=== PATIENT | female | born 1975 | race Hispanic/Latino ===

== ENCOUNTER 2020-06-28 14:45 | Emergency (ER) | payer SELFPAY ==
[2020-06-28 15:30] LABS: Absolute Lymphocytes (CBC) 2.4 K/uL (0.7-4.9); Basophils % 0.6 % (0-1.3); Hematocrit 38.7 % (36.0-45.0); Lymphocytes % 24.9 % (15.3-44.8); MPV 7.9 fL (7.6-11.3); RBC Red Blood Cell Count 4.68 M/uL (3.86-4.86)
[2020-06-28 15:47] LABS: ALT/SGPT 23 U/L (12-78); AST/SGOT 13 U/L (15-37); Albumin 3.4 g/dL (3.4-5.0); Alkaline Phosphatase 100 U/L (45-117); BUN Blood Urea Nitrogen 11 mg/dL (7-18); Bicarbonate 26 mmol/L (21-32); Bilirubin Direct < 0.1 mg/dL (0-0.2); Bilirubin Total 0.3 mg/dL (0.2-1.0); Glucose Level 97 mg/dL (74-106); Lipase 228 U/L (73-393); Potassium 3.8 mmol/L (3.5-5.1); Protein, Total 8.6 g/dL (6.4-8.2); Sodium Level 141 mmol/L (136-145)
--- NOTE | 2020-06-28 16:25 | EDPHYS ---
Physician Documentation [facility] Name: Ashley Castillo Age: 44 yrs Sex: Female : 1975 Arrival Date: 06/28/2020 Time: 14:47 Bed 20 Private MD: ED Physician Amador Tilley HPI: 06/28 15:28 This 44 yrs old Female presents to ER via Ambulatory with complaints of kdr Abdominal Pain. 15:28 The patient presents with abdominal pain in the epigastric area, in the upper abdomen. kdr Onset: The symptoms/episode began/occurred gradually, 2.5 week(s) ago. The symptoms radiate to back. Associated signs and symptoms: Pertinent positives: nausea. The symptoms are described as achy, crampy, intermittent, vague. Modifying factors: The symptoms are alleviated by nothing, the symptoms are aggravated by movement. Severity of pain: At its worst the pain was mild moderate in the emergency department the pain has resolved. The patient has not experienced similar symptoms in the past. The patient has not recently seen a physician. Historical: - Allergies: 14:53 No Known Allergies; ll1 - PSHx: 14:53 ; ll1 - Immunization history:: Flu vaccine is not up to date. - Social history:: Smoking status: Patient denies any tobacco usage or history of. ROS: 15:28 Constitutional: Negative for fever, chills, and weight loss, Eyes: Negative for injury, kdr pain, redness, and discharge, ENT: Negative for injury, pain, and discharge, Neck: Negative for injury, pain, and swelling, Cardiovascular: Negative for chest pain, palpitations, and edema, Respiratory: Negative for shortness of breath, cough, wheezing, and pleuritic chest pain, Back: Negative for injury and pain, : Negative for injury, bleeding, discharge, and swelling, MS/Extremity: Negative for injury and deformity, Skin: Negative for injury, rash, and discoloration, Neuro: Negative for headache, weakness, numbness, tingling, and seizure activity. Psych: Negative for depression, anxiety, suicide ideation, homicidal ideation, and hallucinations, Allergy/Immunology: Negative for hives, rash, and allergies, Endocrine: Negative for neck swelling, polydipsia, polyuria, polyphagia, and marked weight changes, Hematologic/Lymphatic: Negative for swollen nodes, abnormal bleeding, and unusual bruising. 15:28 Abdomen/GI: Positive for abdominal pain, nausea, Negative for constipation, abdominal cramps, abdominal distension, black/tarry stool, rectal pain, rectal bleeding, bowel incontinence. Exam: 15:28 Constitutional: This is a well developed, well nourished patient who is awake, alert, kdr and in no acute distress. Head/Face: Normocephalic, atraumatic. Eyes: Pupils equal round and reactive to light, extra-ocular motions intact. Lids and lashes normal. Conjunctiva and sclera are non-icteric and not injected. Cornea within normal limits. Periorbital areas with no swelling, redness, or edema. Neck: Trachea midline, no thyromegaly or masses palpated, and no cervical lymphadenopathy. Supple, full range of motion without nuchal rigidity, or vertebral point tenderness. No Meningismus. Chest/axilla: Normal chest wall appearance and motion. Nontender with no deformity. No lesions are appreciated. Cardiovascular: Regular rate and rhythm with a normal S1 and S2. No gallops, murmurs, or rubs. Normal PMI, no JVD. No pulse deficits. Respiratory: Lungs have equal breath sounds bilaterally, clear to auscultation and percussion. No rales, rhonchi or wheezes noted. No increased work of breathing, no retractions or nasal flaring. Back: No spinal tenderness. No costovertebral tenderness. Full range of motion. Skin: Warm, dry with normal turgor. Normal color with no rashes, no lesions, and no evidence of cellulitis. MS/ Extremity: Pulses equal, no cyanosis. Neurovascular intact. Full, normal range of motion. Neuro: Awake and alert, GCS 15, oriented to person, place, time, and situation. Cranial nerves II-XII grossly intact. Motor strength 5/5 in all extremities. Sensory grossly intact. Cerebellar exam normal. Normal gait. Psych: Awake, alert, with orientation to person, place and time. Behavior, mood, and affect are within normal limits. 15:28 Abdomen/GI: Inspection: obese Bowel sounds: active, all quadrants, Palpation: soft, Hernia: not appreciated, Difficult to assess due to body habitus. Vital Signs: 14:53 BP 137 / 86; Pulse 86; Resp 18; Temp 98.3; Pulse Ox 99% ; Weight 113.4 kg; Pain 10/10; ll1 16:59 BP 128 / 78; Pulse 82; Resp 18; Temp 97.9; Pulse Ox 100% on R/A; ph MDM: 15:28 Data reviewed: vital signs, nurses notes, lab test result(s), radiologic studies. kdr Counseling: I had a detailed discussion with the patient and/or guardian regarding: the historical points, exam findings, and any diagnostic results supporting the discharge/admit diagnosis, lab results, radiology results. 16:24 Patient medically screened. kdr 06/28 14:56 Order name: Basic Metabolic Panel; Complete Time: 16:00 kdr 06/28 14:56 Order name: CBC with Diff; Complete Time: 16:00 kdr 06/28 14:56 Order name: Hepatic Function; Complete Time: 16:00 kdr 06/28 14:56 Order name: Lipase; Complete Time: 16:00 kdr 06/28 15:25 Order name: CT Abd/Pelvis - IV Contrast Only kdr 06/28 14:56 Order name: IV Saline Lock; Complete Time: 15:19 kdr 06/28 14:56 Order name: Labs collected and sent; Complete Time: 15:19 kdr Administered Medications: 16:55 Drug: traMADol 50 mg Route: PO; ph 16:59 Follow up: Response: No adverse reaction; Medication administered at discharge. ph 16:55 Drug: Bentyl 20 mg Route: PO; ph 16:59 Follow up: Response: No adverse reaction; Medication administered at discharge. ph Disposition: 06/28/20 16:24 Discharged to Home. Impression: Abdominal and pelvic pain. - Condition is Stable. - Discharge Instructions: Abdominal Pain, Adult, [id number]. - Prescriptions for Bentyl 20 mg Oral Tablet - take 1 tablet by ORAL route every 6 hours As needed; 20 tablet. - Medication Reconciliation Form, Thank You Letter form. - Follow up: Private Physician; When: 48 Hours; Reason: If symptoms return, Further diagnostic work-up, Recheck today's complaints, Continuance of care, Re-evaluation by your physician. - Problem is an ongoing problem. - Symptoms have improved. Signatures: Dispatcher [employer] EDMS Amador Tilley MD MD kdr Keyla Ochoa RN RN ph Audie, Lynsay, RN RN ll1 Corrections: (The following items were deleted from the chart) 17:00 16:24 06/28/2020 16:24 Discharged to Home. Impression: Abdominal and pelvic pain. ph Condition is Stable. Forms are Medication Reconciliation Form, Thank You Letter, Antibiotic Education, Prescription Opioid Use. Follow up: Private Physician; When: 48 Hours; Reason: If symptoms return, Further diagnostic work-up, Recheck today's complaints, Continuance of care, Re-evaluation by your physician. Problem is an ongoing problem. Symptoms have improved. kdr
--- NOTE | 2020-06-28 16:25 | ER ---
Nurse's Notes [facility] Name: Ashley Castillo Age: 44 yrs Sex: Female : 1975 Arrival Date: 06/28/2020 Time: 14:47 Bed 20 Private MD: Diagnosis: Abdominal and pelvic pain Presentation: 06/28 14:53 Chief complaint: Patient states: Upper abdominal pain that radiates straight through to ll1 the back for 2.5 weeks. No fever. + nausea. Coronavirus screen: Client denies travel out of the [place] in the last 14 days. At this time, the client does not indicate any symptoms associated with coronavirus-19. Ebola Screen: Patient denies travel to an Ebola-affected area in the 21 days before illness onset. Initial Sepsis Screen: Does the patient meet any 2 criteria? No. Patient's initial sepsis screen is negative. Risk Assessment: Do you want to hurt yourself or someone else? Patient reports no desire to harm self or others. Onset of symptoms was June 11, 2020. 14:53 [facility] 14:53 Acuity: JAN 3 ll1 15:29 Initial Sepsis Screen: Does the patient have a suspected source of infection? No. ph Patient's initial sepsis screen is negative. Historical: - Allergies: 14:53 No Known Allergies; ll1 - PSHx: 14:53 ; ll1 - Immunization history:: Flu vaccine is not up to date. - Social history:: Smoking status: Patient denies any tobacco usage or history of. Screenin:29 Abuse screen: Denies threats or abuse. Denies injuries from another. Nutritional ph screening: No deficits noted. Tuberculosis screening: No symptoms or risk factors identified. Fall Risk None identified. Assessment: 15:30 General: Appears in no apparent distress. comfortable, Behavior is calm, cooperative, ph appropriate for age. Pain: Complains of pain in epigastric area Pain radiates to back. Neuro: Level of Consciousness is awake, alert, obeys commands, Oriented to person, place, time, situation. Cardiovascular: Capillary refill < 3 seconds in bilateral fingers Patient's skin is warm and dry. Respiratory: Airway is patent Respiratory effort is even, unlabored, Respiratory pattern is regular, symmetrical. GI: Abdomen is round non-distended, Reports upper abdominal pain, nausea. Derm: Skin is intact, is healthy with good turgor, Skin is pink, warm \T\ dry. 16:59 Reassessment: Patient appears in no apparent distress at this time. Patient and/or ph family updated on plan of care and expected duration. Pain level reassessed. Patient is alert, oriented x 3, equal unlabored respirations, skin warm/dry/pink. Vital Signs: 14:53 BP 137 / 86; Pulse 86; Resp 18; Temp 98.3; Pulse Ox 99% ; Weight 113.4 kg; Pain 10/10; ll1 16:59 BP 128 / 78; Pulse 82; Resp 18; Temp 97.9; Pulse Ox 100% on R/A; ph ED Course: 14:47 Patient arrived in ED. ds1 14:49 Amador Tilley MD is Attending Physician. kdr 14:55 Triage completed. ll1 14:55 Arm band placed on Patient placed in an exam room, on a stretcher. ll1 15:00 Bed in low position. Call light in reach. Side rails up X 1. Bulgarian speaking only; jp3 daughter in room to translate. Warm blanket given. Verbal reassurance given. Pulse ox on. NIBP on. 15:17 Initial lab(s) drawn, by me, sent to lab. Inserted saline lock: 20 gauge in left jp3 antecubital area, using aseptic technique. Blood collected. Patient maintains SpO2 saturation greater than 95% on room air. 15:29 Keyla Ochoa, RN is Primary Nurse. ph 16:00 CT Abd/Pelvis - IV Contrast Only In Process Unspecified. EDMS 17:00 No provider procedures requiring assistance completed. IV discontinued, intact, ph bleeding controlled, No redness/swelling at site. Pressure dressing applied. Administered Medications: 16:55 Drug: traMADol 50 mg Route: PO; ph 16:59 Follow up: Response: No adverse reaction; Medication administered at discharge. ph 16:55 Drug: Bentyl 20 mg Route: PO; ph 16:59 Follow up: Response: No adverse reaction; Medication administered at discharge. ph Outcome: 16:24 Discharge ordered by . kdr 17:00 Discharged to home ambulatory, with family. ph 17:00 Condition: good 17:00 Discharge instructions given to patient, family, Instructed on discharge instructions, follow up and referral plans. medication usage, Demonstrated understanding of instructions, follow-up care, medications, Prescriptions given X 1. 17:00 Patient left the ED. ph Signatures: Dispatcher [employer] EDMS Amador Tilley MD MD kdr Sanford, Demi ds1 Keyla Ochoa RN RN ph Hayder Sams jp3 Rock Bronson RN RN ll1
[2020-06-28] MEDS ORDERED: DICYCLOMINE HCL 10 MG CAP ONE (16:58)
[2020-06-28] MEDS ORDERED: TRAMADOL HCL 50 MG TAB ONE (17:00)
[2020-06-28 17:06] VITALS: BP 128/78; TEMP 97.9; O2SAT 100
--- NOTE | 2020-06-29 00:31 | RAD REPORT ---
EXAM DESCRIPTION: CTAbdomen Pelvis W Contrast - 06/28/2020 10:22 pm CLINICAL HISTORY: Abdominal pain. ABD PAIN COMPARISON: No comparisons TECHNIQUE: Biphasic CT imaging of the abdomen and pelvis was performed with 100 ml non-ionic IV cont rast. All CT scans are performed using dose optimization technique as appropriate and may include automated exposure control or mA/KV adjustment according to patient size. FINDINGS: The lung bases are clear.Large gallstone is present in the gallbladder. The liver, spleen, pancreas, adrenal glands and kidneys are within normal limits. No bowel obstruction, free air, free fluid or abscess. Sigmoid diverticulosis coli without diverticul itis. The appendix is normal. No evidence of significant lymphadenopathy. No suspicious bony findings. IMPRESSION: Cholelithiasis.
== END 2020-06-28 17:00 | disposition home or self-care (01) ==
LOC: ER 14:45
DX: R10.2 Pelvic and perineal pain (principal)
CPT/HCPCS: 36415; 74177; 80048; 80076; 83690; 85025; 99284; Q9967